=== PATIENT | female | born 1955 | race Asian ===

== ENCOUNTER 2017-08-19 15:11 | Emergency (ER) | payer OTHER ==
[~2017-08-19] VITALS: Ht 149.9 cm; Wt 46.8 kg
[~2017-08-19 15:11] MED LIST: ALLO100T PO; AMLO-511 PO; CALC-1009 PO; CYAN250010 PO; MAGN100T3 PO; SIMV40TA5 PO; ZINC10LO6 PO
[2017-08-19 17:26] LABS: APPEARANCE,URINE CLEAR (CLEAR); BILIRUBIN,URINE NEGATIVE (NEGATIVE); GLUCOSE, URINE (UA) 100 mg/dL (NEGATIVE); KETONES,URINE NEGATIVE (NEGATIVE); LEUKOCYTE ESTERASE ,URINE NEGATIVE (NEGATIVE); NITRATE,URINE NEGATIVE (NEGATIVE); OCCULT BLOOD,URINE TRACE (NEGATIVE); PROTEIN,URINE SEE CONFIRM (NEGATIVE); UROBILINOGEN,URINE 0.2 mg/dL (<=1.0)
[2017-08-19 17:46] LABS: SQUAMOUS EPITHELIAL CELL,UR Rare /LPF (None Seen)
[2017-08-19 17:47] LABS: BACTERIA,URINE Few /HPF (None Seen); RBC,URINE 0-2 /HPF (0-2); WBC,URINE 0-2 /HPF (0-5)
[2017-08-19 17:54] LABS: SULFOSALICYLIC ACID,URINE 3+ (Negative)
[2017-08-19 18:04] VITALS: BP 156/68
== END 2017-08-19 18:08 | disposition home or self-care (01) ==
LOC: EMS 15:12
DX: M79.89 Other specified soft tissue disorders (principal); R80.9 Proteinuria, unspecified; E78.00 Pure hypercholesterolemia, unspecified
CPT/HCPCS: 93970; 99285

== ENCOUNTER → 2019-05-14 | Outpatient (CLI) | payer OTHER ==
[~2019-05-14] MED LIST changes: -AMLO-511 PO; +AMLO5TAB9 PO
== END | disposition home or self-care (01) ==
LOC: RADPV 11:08
PROVIDERS: ATTEND Internal Medicine Nephrology
DX: J98.4 Other disorders of lung (principal); N18.5 Chronic kidney disease, stage 5

== ENCOUNTER 2019-12-07 09:31 | Emergency (ER) | payer OTHER ==
[~2019-12-07] VITALS: Ht 152.4 cm; Wt 41.7 kg
[~2019-12-07 09:31] MED LIST changes: +SIMV-46 PO; -SIMV40TA5 PO
[2019-12-07 13:36] VITALS: BP 133/85
== END 2019-12-07 13:37 | disposition home or self-care (01) ==
LOC: EMS 09:32
DX: S32.2XXA Fracture of coccyx, initial encounter for closed fracture (principal); E78.00 Pure hypercholesterolemia, unspecified; I10 Essential (primary) hypertension; Z99.2 Dependence on renal dialysis; Z90.710 Acquired absence of both cervix and uterus; Z98.890 Other specified postprocedural states; W18.39XA Other fall on same level, initial encounter; Y93.89 Activity, other specified; Y92.89 Other specified places as the place of occurrence of the external cause; Y99.8 Other external cause status
CPT/HCPCS: 72220

== ENCOUNTER 2020-02-11 16:14 | Emergency (ER) | payer OTHER ==
[~2020-02-11] VITALS: Ht 152.4 cm; Wt 54.5 kg
[~2020-02-11 16:14] MED LIST changes: -MAGN100T3 PO; -ZINC10LO6 PO
[2020-02-11 16:18] VITALS: BP 140/77
== END 2020-02-11 17:47 | disposition left against medical advice (07) ==
LOC: EMS 16:17
DX: K59.00 Constipation, unspecified (principal); Z53.21 Procedure and treatment not carried out due to patient leaving prior to being seen by health care provider

== ENCOUNTER 2023-02-25 12:14 | Inpatient (IN) | payer OTHER ==
[~2023-02-25] VITALS: Ht 157.5 cm; Wt 43.1 kg
[~2023-02-25 12:14] MED LIST changes: +ALLO-97 PO; -ALLO100T PO; +AMLO-257 PO; -AMLO5TAB9 PO
[2023-02-25] MEDS ORDERED: SODIUM CHLORIDE 0.9% 250 ML IV ONE (12:30)
[2023-02-25 13:19] LABS: BASOPHILS % (AUTO) 0.6 % (0.0-2.0); EOSINOPHILS % (AUTO) 0.8 % (1.0-6.0); HEMOGLOBIN 10.5 g/dL (12.0-16.0); LYMPHOCYTES # (AUTO) 0.5 K/uL (1.0-4.8); LYMPHOCYTES % (AUTO) 8.1 % (22.0-44.0); MEAN CORPUSCULAR HEMOGLOBIN 34.8 pg (26.0-34.0); MEAN CORPUSCULAR HGB CONC 33.7 G/dL (31.0-37.0); MEAN CORPUSCULAR VOLUME 103 fL (80-100); MONOCYTES # (AUTO) 0.8 K/uL (0.1-1.0); MONOCYTES % (AUTO) 12.5 % (2.0-9.0); NEUTROPHILS # (AUTO) 5.1 K/uL (1.8-7.7); PLATELET COUNT (AUTO) 192 K/uL (150-450); RED BLOOD CELL COUNT(AUTO) 3.01 MIL/uL (4.00-5.20); RED CELL DISTRIBUTION WIDTH 13.3 % (11.5-14.5)
[2023-02-25] MEDS ORDERED: ACETAMINOPHEN 325 MG TABLET PO PRN (13:30)
[2023-02-25 13:36] LABS: LACTIC ACID 1.8 mmol/L (0.4-2.0)
[2023-02-25 13:45] LABS: B-TYPE NATRIURETIC PEPTIDE > 5000 pg/mL (0-100)
[2023-02-25 13:48] LABS: ALKALINE PHOSPHATASE 184 U/L (46-116); ANION GAP 14 mmol/L (8-16); ASPARTATE AMINOTRANSFERASE 101 U/L (15-37); BILIRUBIN,TOTAL 0.9 mg/dL (0.1-1.0); CALCIUM, TOTAL 9.5 mg/dL (8.8-10.5); CARBON DIOXIDE 27 mmol/L (22-29); CHLORIDE 94 mmol/L (98-107); CREATININE 3.59 mg/dL (0.60-1.30); GLOMERULAR FILTR. RATE CALC 13 mL/min (>60); GLUCOSE,RANDOM 82 mg/dL (70-110); SODIUM SERUM 135 mmol/L (136-145); UREA NITROGEN, BLOOD 38 mg/dL (7-18)
[2023-02-25 13:49] LABS: ALANINE AMINOTRANSFERASE 157 U/L (12-78); ALBUMIN 3.6 g/dL (3.4-5.0); LIPASE 514 U/L (73-393); TOTAL PROTEIN, SERUM 7.7 g/dL (6.4-8.2)
[2023-02-25] MEDS ORDERED: HEPARIN SODIUM,PORCINE 5,000 UNITS/ML VIAL IVP ONE (14:00)
[2023-02-25] MEDS ORDERED: HEPARIN SODIUM 25000 UNITS/D5W 250 ML IV PRN (14:00)
[2023-02-25] MEDS ORDERED: HEPARIN SODIUM,PORCINE 5,000 UNITS/ML VIAL IVP PRN ×2 (14:00)
[2023-02-25] MEDS ORDERED: ASPIRIN 325 MG TABLET PO ONE (14:00)
[2023-02-25 14:23] LABS: COVID AG,FIA SOURCE NASOPHARYNGEAL
[2023-02-25 14:48] LABS: PROTHROMBIN TIME 10.9 SEC (9.4-11.6)
[2023-02-25] MEDS: ATORVASTATIN CALCIUM 40 MG TABLET PO SCH (15:01)
[2023-02-25] MEDS ORDERED: HEPARIN SODIUM,PORCINE 5,000 UNITS/ML VIAL SQ SCH (16:00)
[2023-02-25] MEDS: FOLIC ACID/VIT B COMPLEX AND C TABLET PO SCH (16:54)
[2023-02-25] MEDS ORDERED: LORazepam 2 MG/ML VIAL IVP ONE (17:45)
[2023-02-25 17:47] LABS: GLUCOSE,POINT OF CARE 128 MG/DL (70-110)
[2023-02-25] MEDS: ONDANSETRON HCL 4 MG/2 ML VIAL IVP PRN (17:47)
[2023-02-25] MEDS ORDERED: LORazepam 2 MG/ML VIAL IVP PRN (19:30)
[2023-02-25 20:23] VITALS: BP 163/81
[2023-02-25 20:41] LABS: GLUCOMETER DEV NAME(LOC) 5S.1B; GLUCOSE,POINT OF CARE 119 MG/DL (70-110)
[2023-02-25] MEDS: DOCUSATE SODIUM 100 MG CAPSULE PO SCH (21:00)
[2023-02-26] VITALS: BP 153/79
[2023-02-26 00:18] LABS: CALCIUM, TOTAL 8.7 mg/dL (8.8-10.5); CREATININE 4.65 mg/dL (0.60-1.30)
[2023-02-26] MEDS: ONDANSETRON HCL 4 MG/2 ML VIAL IVP PRN (02:19)
[2023-02-26 04:14] VITALS: BP 132/64
[2023-02-26 07:51] VITALS: BP 147/69
[2023-02-26 08:46] LABS: BASOPHILS % (AUTO) 1.1 % (0.0-2.0); EOSINOPHILS % (AUTO) 2.8 % (1.0-6.0); HEMATOCRIT 29.9 % (36-46); HEMOGLOBIN 10.2 g/dL (12.0-16.0); LYMPHOCYTES % (AUTO) 17.1 % (22.0-44.0); MEAN CORPUSCULAR HEMOGLOBIN 35.5 pg (26.0-34.0); MEAN CORPUSCULAR HGB CONC 34.2 G/dL (31.0-37.0); MEAN CORPUSCULAR VOLUME 104 fL (80-100); MONOCYTES # (AUTO) 0.7 K/uL (0.1-1.0); MONOCYTES % (AUTO) 12.2 % (2.0-9.0); NEUTROPHILS # (AUTO) 3.8 K/uL (1.8-7.7); NEUTROPHILS % (AUTO) 66.8 % (40.0-70.0); PLATELET COUNT (AUTO) 181 K/uL (150-450); RED BLOOD CELL COUNT(AUTO) 2.88 MIL/uL (4.00-5.20); RED CELL DISTRIBUTION WIDTH 13.2 % (11.5-14.5)
[2023-02-26] MEDS: DOCUSATE SODIUM 100 MG CAPSULE PO SCH ×2 (09:00→21:00)
[2023-02-26] MEDS: FAMOTIDINE 20 MG TABLET PO SCH (09:14)
[2023-02-26] MEDS: ATORVASTATIN CALCIUM 40 MG TABLET PO SCH (09:14)
[2023-02-26] MEDS: FOLIC ACID/VIT B COMPLEX AND C TABLET PO SCH (09:14)
[2023-02-26 11:32] VITALS: BP 138/71
[2023-02-26 15:18] VITALS: BP 149/67
[2023-02-26 21:00] VITALS: BP 147/69
[2023-02-27 01:00] VITALS: BP 119/58
[2023-02-27 05:07] VITALS: BP 138/68
[2023-02-27 07:53] VITALS: BP 164/69
[2023-02-27] MEDS: FOLIC ACID/VIT B COMPLEX AND C TABLET PO SCH (08:38)
[2023-02-27] MEDS: FAMOTIDINE 20 MG TABLET PO SCH (08:38)
[2023-02-27] MEDS: ATORVASTATIN CALCIUM 40 MG TABLET PO SCH (08:38)
[2023-02-27] MEDS: DOCUSATE SODIUM 100 MG CAPSULE PO SCH (08:38)
[2023-02-27 09:00] VITALS: BP 140/69
== END 2023-02-27 11:00 | disposition left against medical advice (07) | DRG 70 ==
LOC: EMS 12:16 → 5S 18:14
PROVIDERS: ADMIT Internal Medicine; ATTEND Internal Medicine
DX: G93.40 Encephalopathy, unspecified (principal); I21.4 Non-ST elevation (NSTEMI) myocardial infarction; N18.6 End stage renal disease; I13.2 Hypertensive heart and chronic kidney disease with heart failure and with stage 5 chronic kidney disease, or end stage renal disease; I50.22 Chronic systolic (congestive) heart failure; E78.00 Pure hypercholesterolemia, unspecified; I34.0 Nonrheumatic mitral (valve) insufficiency; E87.6 Hypokalemia; M10.9 Gout, unspecified; Z53.21 Procedure and treatment not carried out due to patient leaving prior to being seen by health care provider; Z20.822 Contact with and (suspected) exposure to COVID-19; Z79.899 Other long term (current) drug therapy; Z90.710 Acquired absence of both cervix and uterus; Z99.2 Dependence on renal dialysis; Z98.891 History of uterine scar from previous surgery; Z82.49 Family history of ischemic heart disease and other diseases of the circulatory system; Z83.3 Family history of diabetes mellitus
CPT/HCPCS: 70450; 71045; 80048; 80053; 82962; 83605; 83690; 83880; 84484; 85025; 85610; 85730; 87040; 87081; 93005; 93306; 99291; G0378; J1644; J2060; J2405; J7040; 36415-L1; 36415-TC